=== PATIENT | male | born 1965 | race Caucasian/White ===

== ENCOUNTER 2017-03-20 16:40 | Emergency (ER) | payer OTHER ==
[2017-03-20] MEDS: LIDOCAINE 1% (MDV) 20 ML INJ SC (21:03)
== END 2017-03-20 21:15 | disposition home or self-care (01) ==
LOC: FTE 16:40
DX: L02.213 Cutaneous abscess of chest wall (principal); F17.210 Nicotine dependence, cigarettes, uncomplicated
CPT/HCPCS: 10060; 99284-25

== ENCOUNTER 2018-01-18 21:24 | Emergency (ER) | payer OTHER ==
[2018-01-18] MEDS: HYDROCODONE/APAP (10/325) TAB PO (21:46)
== END 2018-01-18 23:21 | disposition home or self-care (01) ==
LOC: FTE 21:24
DX: S69.92XA Unspecified injury of left wrist, hand and finger(s), initial encounter (principal); F17.210 Nicotine dependence, cigarettes, uncomplicated; W29.8XXA Contact with other powered hand tools and household machinery, initial encounter; Y92.9 Unspecified place or not applicable
CPT/HCPCS: 73130; 73130-LT; 99283-25